=== PATIENT | male | born 1990 | race Caucasian/White ===

== ENCOUNTER 2021-05-13 19:41 | Emergency (ER) | payer SELFPAY ==
[2021-05-13 19:41] VITALS: BP 127/70; PULSE 60; RESP 16; TEMP 36.5; O2SAT 98; BMI 55.3
--- NOTE | 2021-05-13 20:31 | EX.ED.DYSGE1 ---
HPI History of Present Illness Chief Complaint: Allergic Reaction Informant: patient Narrative Narrative: Patient is a 31-year-old previously healthy male who presents to the emergency department for diffuse hives. He states that this initially started earlier today. He did a online conference with a physician and was prescribed a Medrol Dosepak. He did take the first dose today. He felt like the symptoms were worsening significantly so he came to the emergency department. He is getting significant swelling around his face. Since he has been in the emergency department the seem to be improving. He did feel some heaviness in his chest. No significant oral swelling. He has never had this happen before. He states he did just change out his diet and had walnuts added into it. He also did get a new detergent. He denies any fevers or chills. No other symptoms. Patient does admit to vaping. PFSH PFSH Home Medications diphenhydramine HCl [Benadryl] 25 mg PO TID PRN #20 cap 05/13/21 [Rx Last Taken Unknown] Allergy/AdvReac Type Severity Reaction Status Date / Time cefadroxil Allergy Rash Verified 05/13/21 19:45 Social History Smoking Status: Current every day smoker tobacco type: e-cigarettes ROS ROS ED Constitutional Constitutional ED: Denies chills or fever(s) Eyes Eyes: Denies change in vision ENT ENT ED: Denies epistaxis or rhinorrhea Cardiovascular Cardiovascular: Denies chest pain or palpitations Respiratory/Chest Respiratory/Chest: Denies cough, dyspnea or dyspnea on exertion Gastrointestinal Gastrointestinal: Denies abdominal pain, diarrhea, nausea or vomiting Genitourinary Genitourinary ED: Denies dysuria, hematuria or urinary frequency Musculoskeletal Musculoskeletal: Denies back pain or neck pain Integumentary Reports rash Neurologic Neurologic: Denies dizziness, headache(s) or weakness EXAM Physical Exam Const Vital Signs: 05/13/21 19:41 Temperature 97.7 F L Temperature Source Temporal Pulse Rate 60 Respiratory Rate 16 Blood Pressure 127/70 H Blood Pressure Mean 89 Pulse Ox 98 Oxygen Delivery Method Room Air Positive well nourished and well developed General Appearance ED: well developed and NAD HEENT Reports normocephalic, head/scalp atraumatic and moist mucous membranes HEENT Narrative: No oral swelling or lesions. Eyes PERRL and EOMs intact bilaterally Neck supple Resp normal respiratory effort and clear to auscultation bilaterally Auscultation: Negative for rales, rhonchi or wheezes Cardio regular rate, regular rhythm and no murmurs GI normal to inspection, nondistended, normoactive bowel sounds and non-tender Palpation: soft; Negative for guarding or rebound tenderness present Extremity normal to inspection General Extremety ED: Negative for edema or tenderness General Extremity: Negative for edema Neuro oriented x3, CN's II-XII intact bilaterally and no sensory deficits noted Sensorium / Orientation: alert Motor Exam: strength 5/5 throughout Psych mental status grossly normal Skin Skin Narrative: Diffuse hives present. MDM MDM MDM Narrative Medical decision making narrative: Patient presents to ED for worsening of his hives after being started on steroids earlier today. He does have pictures of his face after starting to take the steroids which he do cover his entire face but these have improved significantly at this point. Patient has been in the emergency department for 2 hours now. Will prescribe him Benadryl and Pepcid to take here in the ED. We will write a prescription for Benadryl to continue to take. Patient is improving significantly. I did advise him to rewash his close and get a new detergent. He is to avoid walnuts as well. He is to otherwise follow-up with his PCP. Return precautions are reviewed. He will be discharged home in stable condition. He understands and is agreeable this plan. All questions were answered. Discharge Plan Triage Chief Complaint: Allergic Reaction ED Provider: Srawat Cantrell Dx/Rx/DC Orders Clinical Impression: Hives Instructions: ED Hives (Adult) Prescriptions: New diphenhydramine HCl [Benadryl] 25 mg capsule 25 mg PO TID PRN (Reason: allergy symptoms) Qty: 20 RF: 0 Primary Care Provider: NOT,DEFINED Referrals: NOT,DEFINED [Primary Care Provider] - 3-5 Days Disposition Disposition: Home, Self Care
[2021-05-13] MEDS: DiphenhydrAMINE 25 MG Capsule PO (20:45)
[2021-05-13] MEDS: Famotidine 20 MG Tablet PO (20:45)
[2021-05-13 22:10] VITALS: BP 128/72; PULSE 65; RESP 18; O2SAT 98
== END 2021-05-13 22:10 | disposition home or self-care (01) ==
LOC: ED 20:40
PROVIDERS: Emergency Provider Emergency Medicine
DX: L50.0 Allergic urticaria (principal); F17.200 Nicotine dependence, unspecified, uncomplicated
CPT/HCPCS: 99283; A4216